=== PATIENT | male | born 1975 | race Hispanic/Latino ===

== ENCOUNTER 2022-09-25 08:22 | Emergency (ER) | payer OTHER ==
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
[2022-09-25] MEDS ORDERED: IBUPROFEN 400 MG TAB ONE (09:00)
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
[2022-09-25] MEDS ORDERED: ONDANSETRON 4 MG (ODT) TAB ONE (09:06)
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
[2022-09-25 10:57] VITALS: TEMP 98.2; O2SAT 99
[2022-09-25 10:58] VITALS: BP 122/81
== END 2022-09-25 09:59 | disposition home or self-care (01) ==
LOC: ER 08:22
DX: S46.812A Strain of other muscles, fascia and tendons at shoulder and upper arm level, left arm, initial encounter (principal); S16.1XXA Strain of muscle, fascia and tendon at neck level, initial encounter; S39.012A Strain of muscle, fascia and tendon of lower back, initial encounter; V49.40XA Driver injured in collision with unspecified motor vehicles in traffic accident, initial encounter
CPT/HCPCS: 70450; 72125; 72100; 73030; 99284; Q0162